=== PATIENT | female | born 1950 | race Caucasian/White ===

== ENCOUNTER 2019-11-21 09:18 | Inpatient (IN) ==
[2019-11-21] MEDS ORDERED: PANTOPRAZOLE 40 MG VIAL IV STA (09:36)
[2019-11-21 10:11] LABS: INR 1.1; PT Patient Result 11.8 SECS (9.8-11.9); Partial Thromboplastin Time 27.3 SECS (23.9-33.8)
[2019-11-21 10:27] LABS: Basophils % 0.9 % (0.0-0.8); Eosinophils # 0.3 10*3/uL (0.0-0.87); Hematocrit 22.8 VOL% (35.7-47.0); Immature Granulocytes % 0.5 %; Immature Granulocytes Absolute 0.02 #; Lymphocytes # 1.2 10*3/uL (1.4-4.0); Lymphocytes % 28.5 % (21.3-54.2); Mean Corpuscular HGB Conc 27.2 GM/DL (32-36); Mean Corpuscular Volume 67.9 FL (87-102); Mean Platelet Volume 9.4 FL (9.6-12.0); Monocytes % 13.6 % (1.7-12.7); Neutrophils % 50.5 % (38.7-73.9); Platelet Count 113 T/CUMM (130-400); Red Blood Count 3.36 MC/CUMM (3.8-5.5); Red Cell Distribution Width 20.3 % (9.3-17.3); White Blood Count 4.4 T/CUMM (4-12)
[2019-11-21 10:29] LABS: Hemoglobin 6.2 GM/DL (12.0-16.0); Platelet Estimate Adequate
[2019-11-21 10:30] LABS: Anisocytosis 3+; Basophilic Stippling Slight
[2019-11-21 10:31] LABS: Polychromasia Slight
[2019-11-21 10:32] LABS: % Iron Saturation 4.8 % (18-50); Bilirubin,Total 1.1 MG/DL (0.2-1.0); Calcium 9.1 MG/DL (8.5-10.1); Ferritin 4.5 ng/ml (8-252); Hypochromasia Slight; Osmolality,Calculated 284.1 MOS/KG (273-304); Total Protein 7.2 G/DL (6.4-8.3)
[2019-11-21 11:12] LABS: Folate 11.8 NG/ML (5.4-24.0)
[2019-11-21] MEDS ORDERED: ACETAMINOPHEN 325 MG TABLET PO PRN (12:47)
[2019-11-21] MEDS ORDERED: GLUCAGON 1 MG VIAL IM PRN (12:47)
[2019-11-21] MEDS ORDERED: DEXTROSE 10% 250 ML BAG IV PRN (12:47)
[2019-11-21] MEDS ORDERED: SODIUM CHLORIDE 0.9% 1,000 ML IV PRN (14:23)
[2019-11-21] MEDS ORDERED: DEXTROSE 50% 25 GM/50 ML VIAL IV PRN (14:31)
[2019-11-21] MEDS: POTASSIUM CHLORIDE 20 MEQ TABLET PO PRN ×3 (16:30→21:40)
[2019-11-21] MEDS: INSULIN LISPRO 100 UNIT/ML SUBCUT SCH ×2 (16:45→21:41)
[2019-11-21] MEDS ORDERED: hydrALAZINE 20 MG/1 ML VIAL IV PRN (16:58)
[2019-11-21] MEDS: PANTOPRAZOLE 40 MG VIAL IV SCH (21:42)
[2019-11-22 03:35] LABS: Basophils # 0.1 10*3/uL (0.0-0.2); Basophils % 1.1 % (0.0-0.8); Eosinophils # 0.2 10*3/uL (0.0-0.87); Eosinophils % 4.7 % (0.00-10.9); Hematocrit 26.2 VOL% (35.7-47.0); Immature Granulocytes % 0.2 %; Immature Granulocytes Absolute 0.01 #; Lymphocytes # 1.3 10*3/uL (1.4-4.0); Lymphocytes % 27.3 % (21.3-54.2); Mean Corpuscular HGB Conc 27.9 GM/DL (32-36); Mean Corpuscular Volume 71.8 FL (87-102); Mean Platelet Volume 9.3 FL (9.6-12.0); Monocytes % 14.2 % (1.7-12.7); Neutrophils % 52.5 % (38.7-73.9); Platelet Count 106 T/CUMM (130-400); Red Blood Count 3.65 MC/CUMM (3.8-5.5); Red Cell Distribution Width 22.7 % (9.3-17.3); White Blood Count 4.7 T/CUMM (4-12)
[2019-11-22 03:37] LABS: Hemoglobin 7.3 GM/DL (12.0-16.0)
[2019-11-22 03:40] LABS: Albumin 2.7 G/DL (3.4-5.0); Bilirubin,Total 1.5 MG/DL (0.2-1.0); Calcium 8.9 MG/DL (8.5-10.1); Osmolality,Calculated 282.1 MOS/KG (273-304); Total Protein 6.9 G/DL (6.4-8.3)
[2019-11-22 04:14] LABS: Eosinophils 7 % (0-10); Lymphocytes 37 % (20-55); Segmented Neutrophils 40 % (50-85); Total Cells Counted 100
[2019-11-22 04:15] LABS: Anisocytosis 1+; Hypochromasia 1+; Ovalocytes 1+; Platelet Estimate Adequate
[2019-11-22 04:32] LABS: Apearance,Urine CLEAR (Clear); Bilirubin,Urine Negative (Negative); Blood, Urine Negative (Negative); Glucose,Urine (UA) Negative (Negative); Ketones,Urine Negative (Negative); Nitrite,Urine Negative (Negative); Protein,Urine Negative; RBC,Urine 1 /HPF (0-4); Squamous Epithelial Cell,Urine Occasional /HPF (0-10); Urine Color Yellow (Yellow); Urine Specific Gravity 1.004 (1.001-1.035); Urine Urobilinogen < 2.0 EU/DL (0.2-1.0)
[2019-11-22] MEDS ORDERED: LACTATED RINGERS 1,000 ML IV SCH (08:00)
[2019-11-22] MEDS ORDERED: LIDOCAINE 2% 5 ML VIAL ONE (09:00)
[2019-11-22] MEDS ORDERED: propofoL 200 MG/20 ML VIAL IV ONE (09:00)
[2019-11-22] MEDS ORDERED: ETOMIDATE 20 MG/10 ML VIAL IV ONE (09:00)
[2019-11-22] MEDS: INSULIN LISPRO 100 UNIT/ML SUBCUT SCH ×2 (09:03→13:33)
[2019-11-22] MEDS: PANTOPRAZOLE 40 MG VIAL IV SCH (09:04)
[2019-11-22 11:57] VITALS: BP 142/58
[2019-11-28] MEDS ORDERED: BISACODYL 5 MG TABLET PO ONE (12:00)
[2019-11-28] MEDS ORDERED: POLYETHYLENE GLYCOL POWDER 255 GM BOTTLE PO ONE (18:00)
== END 2019-11-22 13:40 | disposition home or self-care (01) | DRG 812 ==
LOC: N.ED 09:18 → N.EDINP 12:43 → N.3E 13:52
PROVIDERS: ADMIT Internal Medicine; ATTEND Internal Medicine

== ENCOUNTER 2020-01-04 13:39 | Inpatient (IN) ==
[2020-01-04 14:51] LABS: INR 1.1; PT Patient Result 11.4 SECS (9.8-11.9)
[2020-01-04 14:52] LABS: Apearance,Urine CLEAR (Clear); Bilirubin,Urine Negative (Negative); Blood, Urine Negative (Negative); Glucose,Urine (UA) Negative (Negative); Ketones,Urine Negative (Negative); Mucus,Urine Occasional /LPF (Occasional); Nitrite,Urine Negative (Negative); Protein,Urine Negative; RBC,Urine <1 /HPF (0-4); Urine Color Yellow (Yellow); Urine Specific Gravity 1.014 (1.001-1.035); WBC,Urine <1 /HPF (0-6)
[2020-01-04 14:58] LABS: Basophils % 0.7 % (0.0-0.8); Eosinophils # 0.2 10*3/uL (0.0-0.87); Eosinophils % 2.9 % (0.00-10.9); Hematocrit 26.6 VOL% (35.7-47.0); Immature Granulocytes % 0.3 %; Immature Granulocytes Absolute 0.02 #; Lymphocytes # 1.2 10*3/uL (1.4-4.0); Lymphocytes % 20.3 % (21.3-54.2); Mean Corpuscular HGB Conc 27.8 GM/DL (32-36); Mean Corpuscular Volume 73.9 FL (87-102); Mean Platelet Volume 9.2 FL (9.6-12.0); Monocytes % 11.1 % (1.7-12.7); Neutrophils % 64.7 % (38.7-73.9); Platelet Count 102 T/CUMM (130-400); Red Cell Distribution Width 24.8 % (9.3-17.3); White Blood Count 6.1 T/CUMM (4-12)
[2020-01-04 14:59] LABS: Barbiturates Screen,Urine Negative (Negative); Benzodiazepines Screen,Urine Negative (Negative); Cannabinoid Screen,Urine Negative (Negative); Opiate Screen,Urine Negative (Negative); Phencyclidine Screen,Urine Negative (Negative)
[2020-01-04 15:00] LABS: Albumin 2.9 G/DL (3.4-5.0); Bilirubin,Total 0.8 MG/DL (0.2-1.0); Calcium 8.6 MG/DL (8.5-10.1); Total Protein 6.5 G/DL (6.4-8.3)
[2020-01-04 15:02] LABS: Hemoglobin 7.4 GM/DL (12.0-16.0)
[2020-01-04] MEDS ORDERED: GLUCAGON 1 MG VIAL IM PRN (16:03)
[2020-01-04] MEDS ORDERED: ALBUTEROL/IPRATROPIUM 3 ML NEB RESP TX PRN (16:03)
[2020-01-04] MEDS ORDERED: ONDANSETRON 4 MG/2 ML VIAL IV PRN (16:03)
[2020-01-04] MEDS ORDERED: DEXTROSE 50% 25 GM/50 ML VIAL IV PRN (16:03)
[2020-01-04] MEDS ORDERED: LACTULOSE 20 GM/30 ML UDCUP PO SCH ×2 (16:30)
[2020-01-04 16:39] LABS: % Iron Saturation 5.3 % (18-50); Ferritin 6.9 ng/ml (8-252)
[2020-01-04 16:52] LABS: Folate 13.8 NG/ML (5.4-24.0)
[2020-01-04] MEDS: INSULIN LISPRO 100 UNIT/ML SUBCUT SCH (18:04)
[2020-01-04 18:10] LABS: Hematocrit 28.3 VOL% (35.7-47.0); Hemoglobin 7.9 GM/DL (12.0-16.0)
[2020-01-04] MEDS: PANTOPRAZOLE 40 MG VIAL IV SCH (18:14)
[2020-01-04] MEDS: DILTIAZEM CD 240 MG CAPSULE PO SCH (18:14)
[2020-01-04] MEDS: LACTULOSE 320 GM/480 ML BOTTLE RECTAL SCH (21:52)
[2020-01-05] MEDS: INSULIN LISPRO 100 UNIT/ML SUBCUT SCH ×4 (00:43→18:15)
[2020-01-05 01:50] LABS: INR 1.1; PT Patient Result 11.4 SECS (9.8-11.9)
[2020-01-05 01:52] LABS: Albumin 2.9 G/DL (3.4-5.0); Calcium 8.8 MG/DL (8.5-10.1); Osmolality,Calculated 295.4 MOS/KG (273-304); Risk Ratio 2.29; Thyroid Stimulating Hormone 1.22 uIU/ml (0.358-3.74); VLDL CHOLESTEROL 10.2 MG/DL
[2020-01-05 02:03] LABS: Hematocrit 28.3 VOL% (35.7-47.0); Hemoglobin 7.9 GM/DL (12.0-16.0)
[2020-01-05] MEDS ORDERED: ACETAMINOPHEN 325 MG TABLET PO PRN (03:08)
[2020-01-05] MEDS ORDERED: ACETAMINOPHEN 650 MG SUPP RECTAL PRN (04:01)
[2020-01-05 06:20] LABS: Basophils # 0.1 10*3/uL (0.0-0.2); Basophils % 0.7 % (0.0-0.8); Eosinophils # 0.1 10*3/uL (0.0-0.87); Eosinophils % 1.8 % (0.00-10.9); Hematocrit 28.2 VOL% (35.7-47.0); Hemoglobin 7.9 GM/DL (12.0-16.0); Immature Granulocytes % 0.4 %; Immature Granulocytes Absolute 0.03 #; Lymphocytes # 1.1 10*3/uL (1.4-4.0); Lymphocytes % 16.1 % (21.3-54.2); Mean Corpuscular Volume 73.4 FL (87-102); Mean Platelet Volume 9.2 FL (9.6-12.0); Monocytes % 9.9 % (1.7-12.7); Neutrophils % 71.1 % (38.7-73.9); Platelet Count 99 T/CUMM (130-400); Red Blood Count 3.84 MC/CUMM (3.8-5.5); Red Cell Distribution Width 24.7 % (9.3-17.3); White Blood Count 7.1 T/CUMM (4-12)
[2020-01-05 06:59] LABS: Anisocytosis 1+; Platelet Estimate Decreased
[2020-01-05 07:00] LABS: Hypochromasia Slight
[2020-01-05 08:37] LABS: Poikilocytosis Slight
[2020-01-05] MEDS: PANTOPRAZOLE 40 MG VIAL IV SCH (09:34)
[2020-01-05 10:04] LABS: Hematocrit 27.9 VOL% (35.7-47.0); Hemoglobin 7.9 GM/DL (12.0-16.0)
[2020-01-05] MEDS: DILTIAZEM CD 240 MG CAPSULE PO SCH (10:29)
[2020-01-05] MEDS: ENALAPRIL 20 MG TABLET PO SCH (10:29)
[2020-01-05] MEDS: IRON SUCROSE 200 MG in SODIUM CHLORIDE 0.9% 100 ML IV SCH (13:17)
[2020-01-05] MEDS: LACTULOSE 320 GM/480 ML BOTTLE RECTAL SCH ×2 (14:42→21:27)
[2020-01-06] MEDS: INSULIN LISPRO 100 UNIT/ML SUBCUT SCH ×4 (00:21→18:14)
[2020-01-06] MEDS ORDERED: METOPROLOL TARTRATE 5 MG/5 ML VIAL IV ONE (01:31)
[2020-01-06 05:36] LABS: Basophils % 0.6 % (0.0-0.8); Eosinophils # 0.1 10*3/uL (0.0-0.87); Eosinophils % 1.7 % (0.00-10.9); Immature Granulocytes % 0.3 %; Immature Granulocytes Absolute 0.02 #; Lymphocytes # 0.9 10*3/uL (1.4-4.0); Mean Corpuscular HGB Conc 27.5 GM/DL (32-36); Mean Corpuscular Volume 74.6 FL (87-102); Mean Platelet Volume 9.7 FL (9.6-12.0); Monocytes % 11.6 % (1.7-12.7); Neutrophils % 72.8 % (38.7-73.9); Platelet Count 107 T/CUMM (130-400); Red Blood Count 4.14 MC/CUMM (3.8-5.5); Red Cell Distribution Width 24.9 % (9.3-17.3); White Blood Count 6.6 T/CUMM (4-12)
[2020-01-06 05:55] LABS: INR 1.1; PT Patient Result 11.7 SECS (9.8-11.9)
[2020-01-06 06:04] LABS: Albumin 2.7 G/DL (3.4-5.0); Bilirubin,Total 1.3 MG/DL (0.2-1.0); Calcium 8.7 MG/DL (8.5-10.1); Osmolality,Calculated 291.8 MOS/KG (273-304); Total Protein 6.6 G/DL (6.4-8.3)
[2020-01-06 06:22] LABS: Hematocrit 30.5 VOL% (35.7-47.0)
[2020-01-06 06:23] LABS: Hemoglobin 8.5 GM/DL (12.0-16.0)
[2020-01-06 06:27] LABS: Eosinophils 2 % (0-10); Hypochromasia 1+; Lymphocytes 6 % (20-55); Microcytosis Slight; Nucleated Red Blood Cells 1 (0-5); Platelet Estimate Decreased; Segmented Neutrophils 82 % (50-85); Total Cells Counted 100
[2020-01-06] MEDS: ENALAPRIL 20 MG TABLET PO SCH (08:49)
[2020-01-06] MEDS: DILTIAZEM CD 240 MG CAPSULE PO SCH (08:49)
[2020-01-06] MEDS: PANTOPRAZOLE 40 MG VIAL IV SCH (08:50)
[2020-01-06] MEDS ORDERED: DIGOXIN 0.25 MG TABLET PO SCH (09:00)
[2020-01-06] MEDS: IRON SUCROSE 200 MG in SODIUM CHLORIDE 0.9% 100 ML IV SCH (12:05)
[2020-01-06] MEDS: LACTULOSE 320 GM/480 ML BOTTLE RECTAL SCH ×2 (13:12→22:40)
[2020-01-07] MEDS: INSULIN LISPRO 100 UNIT/ML SUBCUT SCH ×3 (00:59→12:01)
[2020-01-07] MEDS: LACTULOSE 320 GM/480 ML BOTTLE RECTAL SCH (01:26)
[2020-01-07 06:31] LABS: Calcium 8.4 MG/DL (8.5-10.1)
[2020-01-07 06:35] LABS: Albumin 2.6 G/DL (3.4-5.0); Calcium 8.5 MG/DL (8.5-10.1); Total Protein 6.8 G/DL (6.4-8.3)
[2020-01-07 06:53] LABS: Basophils # 0.1 10*3/uL (0.0-0.2); Basophils % 0.8 % (0.0-0.8); Eosinophils # 0.3 10*3/uL (0.0-0.87); Eosinophils % 4.3 % (0.00-10.9); Hematocrit 29.3 VOL% (35.7-47.0); Hemoglobin 8.5 GM/DL (12.0-16.0); Immature Granulocytes % 0.8 %; Immature Granulocytes Absolute 0.05 #; Lymphocytes # 1.6 10*3/uL (1.4-4.0); Lymphocytes % 25.7 % (21.3-54.2); Mean Corpuscular Volume 73.1 FL (87-102); Mean Platelet Volume 9.6 FL (9.6-12.0); Monocytes % 14.2 % (1.7-12.7); NRBC # 0.03 10*3/uL; Neutrophils % 54.2 % (38.7-73.9); Platelet Count 100 T/CUMM (130-400); Red Blood Count 4.01 MC/CUMM (3.8-5.5); Red Cell Distribution Width 24.5 % (9.3-17.3); White Blood Count 6.3 T/CUMM (4-12)
[2020-01-07 06:54] LABS: INR 1.1; PT Patient Result 11.7 SECS (9.8-11.9)
[2020-01-07 06:57] LABS: Hypochromasia 1+; Microcytosis 1+; Platelet Estimate Decreased
[2020-01-07] MEDS ORDERED: LACTULOSE 20 GM/30 ML UDCUP PO ONE (07:25)
[2020-01-07] MEDS ORDERED: POTASSIUM CHLORIDE 20 MEQ TABLET PO ONE ×2 (08:53→14:00)
[2020-01-07] MEDS ORDERED: RIFAXIMIN 550 MG TABLET PO SCH (09:00)
[2020-01-07] MEDS ORDERED: LACTULOSE 20 GM/30 ML UDCUP PO SCH ×2 (09:00)
[2020-01-07] MEDS: ENALAPRIL 20 MG TABLET PO SCH (09:33)
[2020-01-07] MEDS: DILTIAZEM CD 240 MG CAPSULE PO SCH (09:33)
[2020-01-07] MEDS: PANTOPRAZOLE 40 MG VIAL IV SCH (09:34)
[2020-01-07] MEDS: IRON SUCROSE 200 MG in SODIUM CHLORIDE 0.9% 100 ML IV SCH (09:35)
[2020-01-07 12:20] VITALS: BP 140/55
== END 2020-01-07 15:00 | disposition swing bed (61) | DRG 442 ==
LOC: N.ED 13:39 → SUATTDRO 16:03 → N.EDINP 16:03 → N.TELEN 17:44
PROVIDERS: ADMIT Internal Medicine; ATTEND Internal Medicine